=== PATIENT | female | born 1935 | race Caucasian/White ===

== ENCOUNTER → 2018-10-24 | Outpatient (CLI) | payer OTHER ==
[~2018-10-24] MED LIST: COREG6.25 MG PO; DOXYCYCLINE100 M3 PO; HUMALOG100 U/ML SC; LISINOPRIL AND1 TAB PO; PRILOSEC40 M1 PO; REGLAN5 MG PO; SIMVASTATIN20 MG PO; VICODIN 5-3001 EACH PO
[2018-10-24 15:16] LABS: FREE T4 1.28 ng/dl (0.76-1.46)
[2018-10-24 15:21] LABS: THYROID STIM HORMONE (HS) 0.009 uIU/ml (0.358-4.75)
[2018-10-25 06:12] LABS: THYROID PEROXIDASE (TPO) AB 11 IU/mL (0-34)
[2018-10-25 16:07] LABS: THYROTROPIN RECEPTOR AB <0.50 IU/L (0.00-1.75)
[2018-10-27 14:10] LABS: THYROGLOBULIN ANTIBODY <1.0 IU/mL (0.0-0.9)
== END | disposition home or self-care (01) ==
PROVIDERS: Family Medicine
DX: E05.00 Thyrotoxicosis with diffuse goiter without thyrotoxic crisis or storm (principal); I10 Essential (primary) hypertension; R53.83 Other fatigue

== ENCOUNTER → 2019-10-27 | Outpatient (CLI) | payer OTHER | END | disposition home or self-care (01) | LOC: RAD 08:55 | DX: Z78.0 Asymptomatic menopausal state (principal) ==

== ENCOUNTER → 2020-04-29 | Outpatient (CLI) | payer OTHER | END | disposition home or self-care (01) | LOC: US 12:21 | DX: E04.1 Nontoxic single thyroid nodule (principal) ==

== ENCOUNTER 2020-09-15 17:10 | Emergency (ER) | payer OTHER ==
[~2020-09-15] VITALS: Ht 165.1 cm; Wt 59.0 kg
[2020-09-15] MEDS ORDERED: PREDNISONE20 M1 PO (18:07)
== END 2020-09-15 18:43 | disposition home or self-care (01) ==
LOC: ED 17:10
DX: L25.9 Unspecified contact dermatitis, unspecified cause (principal); Z79.899 Other long term (current) drug therapy; Z90.49 Acquired absence of other specified parts of digestive tract; Z90.710 Acquired absence of both cervix and uterus

== ENCOUNTER → 2021-05-10 | Outpatient (CLI) | payer OTHER ==
[~2021-05-10] MED LIST changes: +PREDNISONE20 M1 PO
== END | disposition home or self-care (01) ==
LOC: NM 05-03 07:00 → US 07:30
PROVIDERS: ATTEND Internal Medicine Endocrinology, Diabetes & Metabolism
DX: E04.1 Nontoxic single thyroid nodule (principal)

== ENCOUNTER → 2021-11-22 | Outpatient (CLI) | payer OTHER | END | disposition home or self-care (01) | LOC: ORTHO 00:43 | PROVIDERS: ATTEND Orthopaedic Surgery | DX: S82.424A Nondisplaced transverse fracture of shaft of right fibula, initial encounter for closed fracture (principal); S82.891A Other fracture of right lower leg, initial encounter for closed fracture; M77.31 Calcaneal spur, right foot; X58.XXXA Exposure to other specified factors, initial encounter; Y93.89 Activity, other specified; Y92.89 Other specified places as the place of occurrence of the external cause; Y99.8 Other external cause status ==

== ENCOUNTER → 2022-02-15 | Outpatient (CLI) | payer OTHER | END | disposition home or self-care (01) | LOC: LAB 14:05 | PROVIDERS: ATTEND Nurse Practitioner Family | DX: E11.9 Type 2 diabetes mellitus without complications (principal); N32.81 Overactive bladder; N39.3 Stress incontinence (female) (male); N81.4 Uterovaginal prolapse, unspecified; R15.9 Full incontinence of feces; D72.829 Elevated white blood cell count, unspecified; Z23 Encounter for immunization; R63.4 Abnormal weight loss; R63.0 Anorexia; E05.90 Thyrotoxicosis, unspecified without thyrotoxic crisis or storm; I10 Essential (primary) hypertension ==

== ENCOUNTER → 2022-06-11 | Outpatient (CLI) | payer OTHER | END | disposition home or self-care (01) | LOC: RAD 17:28 | PROVIDERS: ATTEND Nurse Practitioner Family | DX: R89.9 Unspecified abnormal finding in specimens from other organs, systems and tissues (principal); R53.1 Weakness ==

== ENCOUNTER → 2022-06-15 | Outpatient (CLI) | payer OTHER | END | disposition home or self-care (01) | LOC: CT 15:48 | PROVIDERS: ATTEND Nurse Practitioner Family | DX: J84.10 Pulmonary fibrosis, unspecified (principal); E04.9 Nontoxic goiter, unspecified; Z90.49 Acquired absence of other specified parts of digestive tract ==

== ENCOUNTER → 2022-07-09 | Day surgery (SDC) | payer OTHER ==
[~2022-07-09] VITALS: Ht 167.6 cm; Wt 52.2 kg
[~2022-07-09] MED LIST changes: +CALCIUM 600+D1 EAC1 PO; +NOVOLOG 70/30 M10 ML SQ; +TRAD5TAB1 PO
[2022-07-09 08:14] VITALS: BP 146/63
[2022-07-09 09:27] VITALS: BP 92/29
[2022-07-09 09:43] VITALS: BP 95/35
[2022-07-09 09:54] VITALS: BP 109/34
== END | disposition home or self-care (01) ==
LOC: SDC 07-05 13:15
PROVIDERS: ATTEND Surgery
DX: D64.9 Anemia, unspecified (principal); D12.6 Benign neoplasm of colon, unspecified; K57.30 Diverticulosis of large intestine without perforation or abscess without bleeding; K29.50 Unspecified chronic gastritis without bleeding; K25.9 Gastric ulcer, unspecified as acute or chronic, without hemorrhage or perforation; I25.10 Atherosclerotic heart disease of native coronary artery without angina pectoris; I10 Essential (primary) hypertension; E11.9 Type 2 diabetes mellitus without complications; Z88.1 Allergy status to other antibiotic agents; Z88.5 Allergy status to narcotic agent; Z90.710 Acquired absence of both cervix and uterus; Z90.49 Acquired absence of other specified parts of digestive tract; Z79.899 Other long term (current) drug therapy

== ENCOUNTER → 2022-07-11 | Outpatient (CLI) | payer OTHER ==
[2022-07-11 09:44] LABS: BASO # 0.1 10*3/uL (0.0-0.1); BASO % 0.3 % (0.0-1.0); EOS % 0.1 % (1.0-4.0); HEMATOCRIT 31.7 % (37.0-47.0); LYMPH # 1.4 10*3/uL (1.3-4.4); LYMPH % 6.5 % (27.0-41.0); MEAN CELL VOLUME 88.5 fl (81.0-99.0); MEAN CORPUSCULAR HGB 28.2 pg (27.0-31.0); MEAN CORPUSCULAR HGB CONC 31.9 g/dl (33.0-37.0); MEAN PLATELET VOLUME 9.7 fl (9.6-12.3); MONO # 1.2 10*3/uL (0.1-1.0); MONO % 5.5 % (3.0-9.0); NEUT # 19.3 10*3/uL (2.3-7.9); NEUT % 86.7 % (47.0-73.0); PLATELET COUNT AUTOMATED 319 10*3/uL (130-400); RED BLOOD COUNT 3.58 10*6/uL (4.10-5.10); RED CELL DISTRI WIDTH 15.6 % (0-14.5); WHITE BLOOD COUNT 22.3 10*3/uL (4.8-10.8)
== END | disposition home or self-care (01) ==
LOC: LAB 09:21
PROVIDERS: ATTEND Nurse Practitioner Family
DX: E11.9 Type 2 diabetes mellitus without complications (principal); E78.2 Mixed hyperlipidemia; R63.4 Abnormal weight loss; R93.3 Abnormal findings on diagnostic imaging of other parts of digestive tract; D64.9 Anemia, unspecified

== ENCOUNTER → 2022-07-20 | Outpatient (CLI) | payer OTHER | LOC: CT 00:15 | PROVIDERS: ATTEND Surgery | DX: D49.0 Neoplasm of unspecified behavior of digestive system (principal); K57.30 Diverticulosis of large intestine without perforation or abscess without bleeding; M41.55 Other secondary scoliosis, thoracolumbar region; Z90.49 Acquired absence of other specified parts of digestive tract ==

== ENCOUNTER → 2022-08-09 | Outpatient (CLI) | payer OTHER | END | disposition home or self-care (01) | LOC: MRI 12:45 | PROVIDERS: ATTEND Surgery | DX: R93.3 Abnormal findings on diagnostic imaging of other parts of digestive tract (principal); Z90.710 Acquired absence of both cervix and uterus ==